=== PATIENT | female | born 1930 | race Caucasian/White ===

== ENCOUNTER 2018-04-16 07:31 | Outpatient (CLI) | payer OTHER ==
[~2018-04-16 07:31] MED LIST: SYNTHROID88 MCG; TARKA 2/2401 BOTTLE
== END 2018-04-16 07:40 | disposition home or self-care (01) ==
LOC: LAB 07:31
DX: I11.0 Hypertensive heart disease with heart failure (principal); D53.8 Other specified nutritional anemias; E04.0 Nontoxic diffuse goiter; E78.2 Mixed hyperlipidemia; E11.9 Type 2 diabetes mellitus without complications; D55.9 Anemia due to enzyme disorder, unspecified; N39.0 Urinary tract infection, site not specified

== ENCOUNTER 2018-07-22 06:52 | Outpatient (CLI) | payer OTHER | END 2018-07-22 07:00 | disposition home or self-care (01) | LOC: LAB 06:52 | DX: E55.9 Vitamin D deficiency, unspecified (principal); I11.0 Hypertensive heart disease with heart failure; D53.8 Other specified nutritional anemias; E11.9 Type 2 diabetes mellitus without complications; E04.0 Nontoxic diffuse goiter; N39.0 Urinary tract infection, site not specified; Z12.11 Encounter for screening for malignant neoplasm of colon ==

== ENCOUNTER → 2018-12-16 06:32 | Outpatient (CLI) | payer OTHER | END | disposition home or self-care (01) | LOC: LAB 06:32 | DX: D53.8 Other specified nutritional anemias (principal); N39.0 Urinary tract infection, site not specified; E78.2 Mixed hyperlipidemia; E04.0 Nontoxic diffuse goiter; E11.9 Type 2 diabetes mellitus without complications ==